=== PATIENT | male | born 1995 | race Two or more races ===

== ENCOUNTER → 2023-02-08 | Outpatient (CLI) | payer OTHER | LOC: M PLAIMG 14:49 | PROVIDERS: ATTEND Physician Assistant | DX: M67.813 Other specified disorders of tendon, right shoulder (principal); S43.432A Superior glenoid labrum lesion of left shoulder, initial encounter; M25.512 Pain in left shoulder; Y99.8 Other external cause status; Y92.89 Other specified places as the place of occurrence of the external cause; Y93.89 Activity, other specified; X58.XXXA Exposure to other specified factors, initial encounter ==